=== PATIENT | female | born 1985 | race Caucasian/White ===

== ENCOUNTER 2023-04-22 05:19 | Day surgery (SDC) | payer MEDICAID, SELFPAY ==
[2023-04-12 15:26] LABS: Prothrombin Time (Protime)PT. 12.8 SECONDS (11.7-14.9)
[2023-04-12 15:27] LABS: Partial Thromboplast Time 26.3 Seconds (24.1-36.2)
[2023-04-12 15:35] LABS: Hemoglobin 13.5 g/dL (12.0-15.0); Mean Corp Hgb Conc 33.8 g/dL (32-36); Mean Corpuscular Hgb 36.3 pg (27.0-32.0); Mean Corpuscular Volume 107.5 fL (81-99); Mean Platelet Vol. 9.7 fl (6.2-12.0); Platelet Count 240 K/mm3 (150-450); RBC Distribution Width CV 13.2 % (11.6-14.6); RBC Distribution Width SD 52.7 fl (35.1-43.9); Red Blood Count 3.72 M/mm3 (4.2-5.4); White Blood Count 3.8 K/mm3 (4.4-11.0)
[2023-04-12 16:03] LABS: AST(SGOT) 101 U/L (15-37); Alanine Aminotransfer ALT/SGPT 49 U/L (13-56); Albumin, Serum 3.7 g/dL (3.2-5.0); Alkaline Phosphatase 73 U/L (45-117); Bilirubin, Direct 0.25 mg/dL (0.00-0.30); Globulin 3.5 g/dL (2.2-4.2); Protein, Total 7.2 g/dL (6.4-8.2)
[2023-04-12 16:27] LABS: Magnesium 1.8 mg/dL (1.6-2.6)
[2023-04-22] VITALS (13 sets, daily range): BP systolic 115–140; BP diastolic 71–99; PULSE 62–103; RESP 16–18; TEMP 36.3–36.9; O2SAT 95–100; BMI 29.3
[2023-04-22] MEDS: Lactated Ringers 1,000 ML 40 ML IV (06:00)
[2023-04-22] MEDS: Enoxaparin 40 MG/0.4 ML Syringe SC (06:01)
[2023-04-22] MEDS: Celecoxib 200 MG Capsule 400 MG PO (06:01)
[2023-04-22] MEDS: Scopolamine 1mg/72hr Patch 1 PATCH TD (06:02)
[2023-04-22] MEDS: Acetaminophen 500 MG Tablet 1000 MG PO ×2 (06:02→13:38)
[2023-04-22] MEDS: Gabapentin 600 MG Tablet PO (06:02)
[2023-04-22] MEDS: Magnesium 2 GM for ERAS IV (06:02)
[2023-04-22 06:03] LABS: Internal QC Validated? YES +Cl - CLEAR BKGD; Pregnancy, Urine Negative Negative
[2023-04-22] MEDS: dexAMETHasone 4 MG/ML Vial 8 MG IV (06:03)
[2023-04-22] MEDS: Phenazopyridine 95 MG Tablet 190 MG PO (06:18)
[2023-04-22 07:12] LABS: Bedside Glucose 154 mg/dL (74-106)
--- NOTE | 2023-04-22 07:30 | HYST_PTH ---
PATIENT: PELNO JUAREZ LOC: [facility] U#:[id number] AGE/SX: 37/F ROOM: RE04/22/[address]: Dr. Pelon Ortiz MD : 1985 BED: DIS: 04/22/2023 SPEC #: [id number] RECD: 04/22/23 11:03 STATUS: VINNY RETorin #: [id number] ANNA: 04/22/23 07:[address]: Pelon Ortiz DEPT: SURGICAL PATHOLOGY RECD BY: Lena Estrada ENTERED: 04/22/23 12:03 SP TYPE: HYSTERECT OTHR DR: Dr. Sherwin Cordon MD No Primary Care Phys Tissues: Uterus, NOS Procedures: Surgery Specimen Level V HEADER OPERATION: ERAS, Hysterectomy, LAVH, bilateral salpingectomy, cysto PRE-OP DIAGNOSIS: Menorrhagia, post endometrial ablation syndrome TISSUE SUBMITTED: Uterus, bilateral fallopian tubes MICROSCOPIC DIAGNOSIS Uterus, cervix and bilateral fallopian tubes, hysterectomy and bilateral salpingectomy: Cervix - chronic cystic cervicitis. Endometrium - weakly secretory endometrium. Myometrium - A subserosal leiomyoma (1.5 cm in greatest dimension). - Focal adenomyosis. One fallopian tube - no pathologic diagnosis. Second fallopian tube - focal endometriosis. SJ:clara 04/23/2023 MICROSCOPIC DESCRIPTION Slides are reviewed. GROSS DESCRIPTION Received in fixative is one container labeled with the patient's name and designated uterus, bilateral fallopian tubes. The specimen consists of a hysterectomy specimen consisting of uterus with cervix and detached bilateral fallopian tubes. The uterus with cervix weighs 133 gm. Both cornu at the resection margins of the fallopian tubes shows coiled metallic wire. The specimen is previously, partially opened. The uterus with cervix measures 10.0 x 7.0 x 4.5 cm. A subserosal nodule is also noted. The serosal surface is sheldon, glistening. The endocervical mucosa is unremarkable. The external os is oval and patulous in contour. The endocervical canal measures 3.0 cm in length and the endocervical mucosa is sheldon, glistening and unremarkable. Sections of the cervix reveal a few cysts filled with mucoid material. The triangular endometrial cavity measures 4.5 cm in length and up to 3.0 cm in width. The endometrium is sheldon, glistening without any mass lesion and measures <0.1 cm in thickness. Sections of the uterine wall reveal a subserosal nodular mass measuring 1.5 cm in greatest dimension. Sections of the uterine wall also reveal a focal, hemorrhagic area at the left cornu. The uterine wall measures up to 2.5 cm in thickness. The fallopian tubes are not identified as right or left and measure 6.0 cm in length and 0.5 cm in diameter and 5.5 cm in length and 0.5 cm in diameter. The fimbrial end is identified. Sections reveal unremarkable cut surfaces. [employer] sections are submitted in nine cassettes as follows: 1 - anterior cervix, 2 - posterior cervix, 3 & 4 - anterior uterine wall, 5 & 6 - posterior uterine wall, 7 - hemorrhage area in the left cornu and subserosal nodular mass, 8 - one fallopian tube, 9 - second fallopian tube. / SJ:clara 04/22/2023 TC:1 CPT: 99453
--- NOTE | 2023-04-22 07:30 | HP.PCM_ITS ---
History and Physical Date of Admission: 04/22/23 37-year-old male has completed childbearing who failed an endometrial ablation and trans eccentric acid presents today for definitive therapy of her menorrhagia and post endometrial ablation syndrome in the form of laparoscopic- assisted vaginal hysterectomy. She has no significant past medical history She denies any allergies Social history significant for occasional alcohol and vaping use Past surgical history significant for [place] sterilization and endometrial ablation Vitals blood pressure 128/88, pulse 78, respiration 16, height 5 foot 9 inches, weight 197 pounds, pulse ox 99% on room air General: Awake alert no acute distress Skin warm dry and intact Lungs clear to auscultation bilaterall Heart S1-S2 regular rate and rhythm Current medications none This history and physical was completed in my office on 04/01/2023. Risk benefits and alternatives to laparoscopic assisted vaginal hysterectomy with bilateral salpingectomy were discussed with patient, her questions were answered to her satisfaction she desires to proceed and consent was signed. y Assessment & Plan Assessment/Plan (1) Menorrhagia: (2) Post endometrial ablation syndrome:
[2023-04-22] MEDS: Cefazolin 2 GM in 0.9% Normal Saline (100mL Bag) 100 ML IV (07:35)
--- NOTE | 2023-04-22 07:50 | PCM.DC ---
Discharge Instructions Diet Discharge Diet: Light diet - advance as tolerated Activity Discharge Activity: May Drive (in 7-10 days as tolerated), May Shower and May Take a Tub Bath (in 6 weeks) May shower in (days): 1 May resume sexual activity in: 6-8 weeks and - (Nothing in your vagina for 6 weeks. No vaginal or anal intercourse for 6-8 weeks) Dressing / Incision Call your doctor if your incision/area has: Continuous Slow Oozing Call your doctor if you observe: Fever of 101 or Higher and Using more than 1 pad per hour Cleanse incision/area with: Soap & Water (Your incisions have skin glue, it can get wet, leave it on for at least 10 days) and - (Your incisions have skin glue, it can get wet, leave the glue on until it falls off. ) Follow Up Care Please Follow Up With: Brenda Ortiz MD When: With my office in 1-2 and 6 weeks or as needed. [phone] or send a [employer] message for non urgent issues Test Results: Test results from this visit will be discussed in further detail at your follow-up appointment, if applicable. Discharge Plan Admission Primary Reason for Your Visit: Hysterectomy Attending Provider: Brenda Ortiz Primary Care Provider: Care Physician,No Primary Consulting Providers: Sherwin Cordon Discharge Orders/Prescriptions Prescriptions: New ibuprofen [ibuprofen] 600 MG tablet 600 mg PO Q6H PRN (Reason: Pain) 20 Days Qty: 60 1RF oxycodone 5 MG tablet 5 mg PO Q8H PRN (Reason: severe pain) 7 Days Qty: 6 0RF Continued acetaminophen 325 mg capsule 325 mg PO Q6H PRN (Reason: pain) Other Ambulatory Orders: ,Urine (Routine) Timeframe: [id number] Facility: [facility] - Location: Laboratory Ordered By: Dr. Brenda Ortiz Disposition Disposition (needs filled in before D/C Order can be placed): Home, Self Care
[2023-04-22] MEDS: Lidocaine 1%/Epi 1:200 (30ml) 30 ML AMPUL (08:40)
[2023-04-22] MEDS: Bupivacaine Mpf 0.5% 30 ML VIAL (09:21)
--- NOTE | 2023-04-22 09:30 | OP.PCM_ITS ---
Problems Associated Problem List Diagnoses (1) Post endometrial ablation syndrome: (2) Menorrhagia: Report of Operation Date of Procedure: 04/22/23 Pre-Operative Diagnosis: menorrhagia, post endometrial ablation syndrome Post-Operative Diagnosis: same + some endometrisis of left tube and right uterosacral ligament Surgery/Procedure Performed:: LAVH, bilateral salpingectomy, cystoscopy, removal of essure device from anterior bladder peritoneum Description of Surgical Findings:: boggy uterus, normal cervix and vagina, normal ovaries, tubes w/ essure devices, one essure device in anterior cul de sac implanted superficially on the peritoneum Surgeon: Brenda Ortiz polymerization helper: Sumi Villanueva Type of Anesthesia: General Anesthesiologist: Alena Ferguson Special Medications: none Specimen's removed: uterus, cervix, bilateral fallopian tubes and essure device Drains: none Estimated Blood Loss (mL): 120 Fluids Replaced: 1800 Description of Procedure: The patient was taken to the operating room where she was prepped and draped in the dorsal lithotomy position. Her arms were tucked to the side and padded and her legs were placed in the yellowfin stirrups. Care was taken to ensure that she was placed in a neurologically safe and neutral position. A weighted speculum was placed in the vagina and the anterior lip of the cervix was grasped with a single-tooth tenaculum. The uterus sounded to centimeters. The ZUMI uterine manipulator was placed and secured. The Corrales catheter was placed to straight drain. Attention was turned to the abdominal portion of the case. Before skin incisions were made they were infiltrated with 0.5% Marcaine solution for local anesthetic. A 5 mm intraumbilical incision was made and while tenting the anterior abdominal wall up with towel clamps a 5 mm blade less trocar and sleeve were advanced directly into the peritoneal cavity. Peritoneal placement was con firmed with the laparoscope the pneumoperitoneum was created, and the underlying abdominal contents were intact. The patient was placed in Trendelenburg and the above findings were noted. Right and left lateral 5 mm trochars were placed under direct visualization without difficulty. It was noted there was an Essure device implanted on the anterior peritoneum somewhat superficially. The ends we re grasped and it was stretched and removed without difficulty. Did not appear to be perforating through to the bladder and was very superficial. The antimesenteric portion of the tube was clamped sealed and transected serially on both sides with the LigaSure device. The round ligaments were clamped sealed and transected and a window was made in the peritoneum. The utero-ovarian ligaments were then clamped, sealed and transected with the LigaSure device and the pedicles were hemostatic The bladder flap was dissected down with the LigaSure device and blunt dissection and the uterine arteries were then skeletonized. There were some adhesions on the right uterosacral ligament were taken down with scissors. Some cautery was used. The ureter was identified. The bowel was out of the way. Attention was turned to the vaginal portion of the case. 1% lidocaine with dilute epinephrine solution was used to infiltrate the anterior vaginal epithelium over the cervix. An incision was made from 3 to 9:00 across the anterior vaginal epithelium and the vaginal epithelium was dissected back with blunt sharp dissection. The anterior colpotomy incision was made. The vaginal epithelium on each side of the cervix at 3 and 9:00 was clamped, transected and suture ligated. The next pedicle contained the anterior peritoneum and part of the cardinal ligament. The pedicle was was clamped with a Pardeep clamp, transected and suture-ligated. Hemostasis was noted. The uterine fundus was brought through the anterior colpotomy incision. Some adhesions of some epiploica to the lower uterine segment were taken down with sharp and blunt dissection. The uterosacral ligaments and vaginal cuff were secured with Pardeep clamps. The pedicles were transected. The uterus and cervix were then amputated and removed. The pedicles were secured with an 0 Vicryl suture. At this point, the pedicles were all examined and hemostasis was assured. A [id number] was needed in the midline and the vaginal cuff between the uterosacrals to tack the peritoneum down to the posterior vaginal wall. The vaginal cuff was then closed in a horizontal fashion with interrupted 0 Vicryl [id number] sutures. Care was taken to secure the vagina to the uterosacral ligaments. The Corrales catheter was removed and a cystoscopy was performed. The bladder appeared normal and was intact. Both ureteral orifices were noted and both ureteral jets were seen. The cystoscope was removed and the Corrales catheter was placed back to straight drain. A sponge stick was placed in the vagina to help place traction against the vaginal cuff. The laparoscope was reinserted into the abdomen and the pneumoperitoneum was re- created. The pedicles were reexamined and found to be hemostatic. There was some oozing around the bladder flap and the peritoneal edges wide pushed the adhesions off the epiploica of the uterosacral ligaments. The vaginal cuff was hemostatic. Hemoblast was placed over the surgical sites and no active bleeding was noted through the hemoblast. The right and left lateral ports were taken out and the sites were hemostatic. The pneumoperitoneum was released and even under low pressure there was no bleeding of any of the pedicles are vaginal cuff. The umbilical port was removed. The umbilical skin incisions were closed with Monocryl suture and skin glue by Dr. Joe. The vaginal instruments were removed by me and a vaginal sweep was completed by Dr. Joe. Dr. Joe provided camera guidance, uterine manipulation, retraction and tissue manipulation during the surgery. The surgery was performed by me with assistance other than the portions dictated as above. There were no qualified residents available for this procedure. All sponge lap and needle counts were correct and the patient was transferred to the recovery room in stable condition. Grafts/Implants Used: none Procedure Start Time: 07:56 Procedure Stop Time: 09:35 Complications none Admit VTE Documentation VTE Present on Admission: No VTE Mechan Device Prophylaxis: SCD's VTE Pharm Prophylaxis ordered?: No Reason prophylaxis not ordered:: Procedure Not Indicated
[2023-04-22] MEDS: Ketorolac 30 MG/ML Syringe IV (10:20)
[2023-04-22] MEDS: Lactated Ringers @ 40 MLS/HR 40 ML IV (10:48)
[2023-04-22] MEDS: oxyCODONE 5 MG Tablet PO ×2 (11:44→13:38)
[2023-04-22 13:13] LABS: Hematocrit 36.3 % (37-47); Hemoglobin 12.1 g/dL (12.0-15.0); Mean Corp Hgb Conc 33.3 g/dL (32-36); Mean Corpuscular Hgb 35.7 pg (27.0-32.0); Mean Corpuscular Volume 107.1 fL (81-99); Mean Platelet Vol. 9.9 fl (6.2-12.0); Platelet Count 256 K/mm3 (150-450); RBC Distribution Width CV 12.7 % (11.6-14.6); RBC Distribution Width SD 49.9 fl (35.1-43.9); Red Blood Count 3.39 M/mm3 (4.2-5.4); White Blood Count 11.1 K/mm3 (4.4-11.0)
== END 2023-04-22 14:02 | disposition home or self-care (01) ==
LOC: SDC 05:20 → AC 05:20
PROVIDERS: Anesthesiology; Visit Provider Obstetrics & Gynecology
PROC: 0UT9FZZ Resection of Uterus, Via Natural or Artificial Opening With Percutaneous Endoscopic Assistance (ICD-10-PCS; CPT 58552; principal; 2023-04-22 07:05)
DX: D25.2 Subserosal leiomyoma of uterus (principal); N80.03 Adenomyosis of the uterus; N80.202 Endometriosis of left fallopian tube, unspecified depth; N80.3C1 Endometriosis of the right uterosacral ligament, unspecified depth; N72 Inflammatory disease of cervix uteri; N92.0 Excessive and frequent menstruation with regular cycle; N99.85 Post endometrial ablation syndrome
CPT/HCPCS: 58552; 00840; 36415; 80076; 81025; 82962; 83735; 85027; 85610; 85730; 88307; J7120; J2405